=== PATIENT | female | born 1965 | race Caucasian/White ===

== ENCOUNTER 2019-06-22 08:55 | Outpatient (CLI) | payer OTHER ==
[2019-06-22 16:55] LABS: #Basophils 0.1 thou/uL (0.0-0.2); #Eosinphils 0.2 thou/uL (0.0-0.7); #Lymphocytes 1.8 thou/uL (1.20-3.40); #Monocytes 0.5 thou/uL (0.11-0.59); #Neutrophils 4.3 thou/uL (1.40-6.50); %Basophils 1.1 % (0.0-1.0); %Eosinophils 2.5 % (0.0-10.0); %Lymphocytes 26.8 % (21.0-51.0); %Monocytes 6.7 % (0.0-10.0); %Neutrophils 62.8 % (42.0-75.0); Hemoglobin 14.6 g/dL (12.0-16.0); Mean Corpuscular HGB CONC 32.2 g/dL (32.0-36.0); Mean Corpuscular Hemoglobin 29.3 pg (27.0-31.0); Mean Corpuscular Volume 90.8 fL (78.0-98.0); Mean Platelet Volume 7.8 fL (7.4-10.4); Platelet Count 202 thou/uL (130-400); RBC Distribution Width 10.6 % (11.5-14.5); Red Blood Cell (RBC) Count 4.98 mill/uL (4.20-5.40); White Blood Cell (WBC) Count 6.8 thou/uL (4.8-10.8)
--- NOTE | 2019-06-23 11:05 | EKG ---
Test Reason : Blood Pressure : / mmHG Vent. Rate : 073 BPM Atrial Rate : 073 BPM P-R Int : 162 ms QRS Dur : 088 ms QT Int : 380 ms P-R-T Axes : 036 -39 009 degrees QTc Int : 418 ms Normal sinus rhythm Left axis deviation Voltage criteria for left ventricular hypertrophy Cannot rule out Septal infarct , age undetermined Nonspecific ST-T changes Abnormal ECG When compared with ECG of 15-JAN-2015 12:34, Minimal criteria for Septal infarct are now Present Confirmed by DR. Lillian STINSON ([id number]) on 06/23/2019 11:05:17 AM Referred By: PATTI Confirmed By:DR. Lillian STINSON
== END 2019-06-22 08:56 | disposition home or self-care (01) ==
LOC: LABBT 08:55
PROVIDERS: ATTEND Orthopaedic Surgery
DX: Z01.818 Encounter for other preprocedural examination (principal); G56.01 Carpal tunnel syndrome, right upper limb
CPT/HCPCS: 85025; 93005; 93010

== ENCOUNTER 2019-07-05 05:51 | Day surgery (SDC) | payer OTHER ==
[2019-06-22 16:12] VITALS: BMI 41.5
--- NOTE | 2019-07-04 13:18 | HP ---
HISTORY OF PRESENT ILLNESS: The patient is a 54-year-old right-handed female with a greater than one year history of pain, numbness in the median nerve distribution of the right hand without injury. She has had persistent symptoms despite rest, restriction of activities, anti-inflammatory medications, and night splinting. PAST HISTORY: Please see the old chart. The patient is otherwise in good health. She has had previous right total knee replacement in 2015 with good results. She has degenerative arthritis of her left knee, which is currently being managed conservatively. She has a history of glaucoma for which she takes eye drops. She also has been taking etodolac for current symptoms in addition to vitamin D. ALLERGIES: SHE HAS NO KNOWN ALLERGIES. FAMILY HISTORY: Otherwise unremarkable. SOCIAL HISTORY: Otherwise unremarkable. REVIEW OF SYSTEMS: Otherwise unremarkable. PHYSICAL EXAMINATION: GENERAL: Reveals a healthy female. HEENT: Unremarkable. NECK: Supple. CHEST: Clear. HEART: Regular rhythm. ABDOMEN: Soft, nontender. PELVIC, RECTAL, BREAST: Deferred. EXTREMITIES: Pertinent findings of the right wrist. There is no swelling. There is no bony tenderness. She has full range of motion. Motor exam is intact. There is a positive Tinel sign and positive Phalen test. There is subjective numbness in median nerve distribution. There are good distal pulses. Nerve conduction studies performed by Dr. Leyva reveal moderately severe right carpal tunnel syndrome. IMPRESSION: Right carpal tunnel syndrome. PLAN: Endoscopic possible open right carpal tunnel release. The nature of surgery, length of recovery, and potential complications such as infection, loss of motion, incomplete relief, nerve injury, recurrence, need for additional repeat surgery were discussed in detail Job ID: [id number]
[2019-07-05] MEDS ORDERED: Lidocaine 1% (PF) 30 ML VIAL ONE (06:48)
[2019-07-05] MEDS ORDERED: Midazolam HCl 2 mg/2 ml Vial ONE (07:35)
[2019-07-05] MEDS ORDERED: Fentanyl 100 MCG/2 ML VIAL ONE (07:36)
[2019-07-05] MEDS ORDERED: HYDROcodone/Acetaminophen 5/325 mg Tablet ONE (08:52)
[2019-07-05] MEDS ORDERED: Ondansetron PF 4 MG/2 ML Vial ONE (09:53)
[2019-07-05] MEDS ORDERED: PROPOFOL 200 MG/20 ML VIAL ONE (09:53)
--- NOTE | 2019-07-05 14:46 | OP ---
DATE OF PROCEDURE: 07/05/2019 ANESTHESIA: Local plus TIVA. PREOPERATIVE DIAGNOSIS: Right carpal tunnel syndrome. POSTOPERATIVE DIAGNOSIS: Right carpal tunnel syndrome. PROCEDURE PERFORMED: Right endoscopic carpal tunnel release. DESCRIPTION OF PROCEDURE: After satisfactory anesthesia was induced in supine position, the patient was prepped and draped in routine manner. Field block with 1% lidocaine 10 mL was performed. The right arm was elevated, exsanguinated with an Esmarch bandage, and the tourniquet was inflated to 250 mmHg. A 2 cm transverse incision was made in the proximal wrist flexion crease, carried down through the subcutaneous tissues. Bleeding points were controlled with Bovie cautery. Using sharp and blunt dissection, a distally-based flap at the deep forearm fascia was developed and retracted distally. Palmaris longus tendon was retracted radially. Proximal edge of the deep forearm fascia was split under direct visualization with small scissors to make sure there was no proximal impingement on the median nerve. Synovium elevator was introduced beneath the transverse carpal ligament, and the synovium was cleaned from the undersurface. Carpal tunnel dilators were inserted. The Atlas Cloude endoscopic carpal tunnel system was introduced beneath the transverse carpal ligament. The distal edge of the ligament was identified, and that ligament was divided in a distal to proximal direction by pulling the trigger of the assembly, withdrawing the knife, and withdrawing the scope proximally. This was done in several stages to make sure there was complete division of the transverse carpal ligament. After withdrawing the scope, the carpal tunnel dilator could be inserted into the carpal tunnel, and there was markedly improved passage with subcutaneous position of the instrument. The scope was re-introduced into the carpal tunnel. There was wide separation of the 2 leaves of the transverse carpal ligament. The tourniquet was released after 6 minutes. There was no excessive bleeding, and the scope was withdrawn. The wound was thoroughly irrigated and then closed with a running subcuticular 3-0 nylon. Sterile dressing was applied, and the patient was immobilized in a Velcro wrist splint. She was awakened and taken from the operating room in stable condition. There were no apparent intraoperative complications. The estimated blood loss was negligible. The patient will be discharged home in satisfactory condition, instructed on ice, elevation, given written wound care instructions. She was given prescription for tramadol for pain, 30 tablets. She will be rechecked in my office in 10 to 14 days or sooner if there are any problems prior to that time. Job ID: [id number]
== END 2019-07-05 10:01 | disposition home or self-care (01) ==
LOC: SDC 05:51
PROVIDERS: ATTEND Orthopaedic Surgery
PROC: 01N54ZZ Release Median Nerve, Percutaneous Endoscopic Approach (ICD-10-PCS; principal; 2019-07-05)
DX: G56.01 Carpal tunnel syndrome, right upper limb (principal); M17.12 Unilateral primary osteoarthritis, left knee; Z79.1 Long term (current) use of non-steroidal anti-inflammatories (NSAID); Z96.651 Presence of right artificial knee joint
CPT/HCPCS: J0690; J2001; J2250; J2405; J2704; J3010

== ENCOUNTER 2019-10-18 06:41 | Day surgery (SDC) | payer OTHER ==
--- NOTE | 2019-10-17 09:19 | HP ---
HISTORY OF PRESENT ILLNESS: The patient is a 54-year-old female, who underwent endoscopic right carpal tunnel release on July 05, 2019. She has obtained no relief and she has had persistent numbness in the median nerve distribution, which is persistent despite continued use of the splint and anti-inflammatory medications and use of gabapentin. PAST MEDICAL HISTORY: Please see the old chart. The patient has also had previous total knee replacement. She also has arthritis in her other knee for which she takes etodolac. She has used tramadol for pain, and she has history of glaucoma controlled with eye drops. CURRENT MEDICATIONS: Include timolol, Travatan eye drops, etodolac, and tramadol. ALLERGIES: SHE HAS NO KNOWN ALLERGIES. FAMILY HISTORY: Otherwise unremarkable. SOCIAL HISTORY: Otherwise unremarkable. REVIEW OF SYSTEMS: Otherwise unremarkable. PHYSICAL EXAMINATION: GENERAL: Shows healthy female. HEENT: Unremarkable. NECK: Supple. CHEST: Clear. HEART: Rate regular and rhythm. ABDOMEN: Soft, nontender. PELVIC: Deferred. RECTAL: Deferred. BREASTS: Deferred. EXTREMITIES: Pertinent findings of the right wrist, previous incision is well healed. There is no point tenderness. There is full range of motion. Motor exam appears to be intact. There is a positive Tinel sign and equivocal Phalen's test. There is decreased sensation in a median nerve distribution. IMPRESSION: Right carpal tunnel syndrome, recurrent/persistent nerve compression versus nerve injury. PLAN: Open right carpal tunnel release. The nature of the surgery, length of recovery, and potential complications such as infection, loss of motion, incomplete relief, inability to improve the situation, possible nerve injury, and need for additional treatment and repeat surgery have been discussed in detail with the patient and her . Job ID: [id number]
[2019-10-17 12:40] VITALS: BMI 41.5
[2019-10-18 07:48] LABS: #Basophils 0.1 thou/uL (0.0-0.2); #Eosinphils 0.2 thou/uL (0.0-0.7); #Lymphocytes 1.5 thou/uL (1.20-3.40); #Monocytes 0.5 thou/uL (0.11-0.59); #Neutrophils 4.1 thou/uL (1.40-6.50); %Basophils 1.3 % (0.0-1.0); %Eosinophils 3.2 % (0.0-10.0); %Lymphocytes 23.7 % (21.0-51.0); %Monocytes 7.9 % (0.0-10.0); Hemoglobin 14.2 g/dL (12.0-16.0); Mean Corpuscular HGB CONC 33.6 g/dL (32.0-36.0); Mean Corpuscular Hemoglobin 30.7 pg (27.0-31.0); Mean Corpuscular Volume 91.4 fL (78.0-98.0); Mean Platelet Volume 7.1 fL (7.4-10.4); Platelet Count 213 thou/uL (130-400); RBC Distribution Width 11.1 % (11.5-14.5); Red Blood Cell (RBC) Count 4.62 mill/uL (4.20-5.40); White Blood Cell (WBC) Count 6.4 thou/uL (4.8-10.8)
[2019-10-18] MEDS ORDERED: Bupivacaine PF 0.5% 30 ML VIAL ONE (08:18)
[2019-10-18] MEDS ORDERED: PROPOFOL 20 ML ONE (08:32)
[2019-10-18] MEDS ORDERED: Midazolam HCl 2 mg/2 ml Vial ONE (08:32)
[2019-10-18] MEDS ORDERED: Fentanyl 100 MCG/2 ML VIAL ONE ×4 (08:41→10:53)
[2019-10-18] MEDS ORDERED: Bupivacaine HCl 0.5%/Epinephrine 1:200,000/PF 30 ml Vial ONE (10:03)
[2019-10-18] MEDS ORDERED: Morphine 2 MG/ML SYRINGE ONE (10:23)
[2019-10-18] MEDS ORDERED: Ketorolac Tromethamine 30 MG/ML VIAL ONE (10:37)
--- NOTE | 2019-10-18 11:20 | OP ---
DATE OF PROCEDURE: 10/18/2019 ANESTHESIA: General. PREOPERATIVE DIAGNOSIS: Recurrent/persistent carpal tunnel syndrome, right wrist. POSTOPERATIVE DIAGNOSIS: Recurrent/persistent carpal tunnel syndrome, right wrist. PROCEDURE PERFORMED: Open right carpal tunnel release with median nerve exploration. OPERATIVE FINDINGS: There was abundant scar tissue. The median nerve appeared to be herniated anteriorly and was stuck adherent to the skin. There also appeared to be an abnormality in the median nerve in which it was split into two longitudinal segments at the wrist. The most radial of these appeared to end and I could not see a distinct end to this. I could not tell this is a normal variant or could have been partially injured in the initial endoscopic release. The remaining the part of the nerve was freed up including the recurrent branch of the thenar musculature and this appeared to be free and mobile. I freed up the nerve without performing a formal neurolysis and the remaining part of the nerve preferred to be free and mobile, but I could not totally rule out if there was at least a partial injury to the median nerve versus normal variant. If she continues to have problems, she may require referral for microscopic exploration. DESCRIPTION OF PROCEDURE: After satisfactory anesthesia was induced in supine position, the patient was prepped and draped in routine manner. The right arm was elevated and exsanguinated with an Esmarch bandage and the tourniquet inflated to 250 mmHg. Incision was made from the distal palmar crease along the hypothenar eminence to the distal wrist flexion crease and this carried radially several centimeters in the distal forearm. This was carried down through the subcutaneous tissues. Bleeding points were controlled with Bovie cautery. The distal edge of the transverse carpal ligament was identified and then divided in a distal to proximal direction over a grooved director to prevent injury to the underlying median nerve. There appeared to be at least a partial incomplete release of this, although most of the nerve was herniated anteriorly and stuck to the skin. After dividing the remaining portion of the transverse carpal ligament and deep forearm fascia, the nerve was gently explored from proximal to distal and the above findings were noted. The nerve appeared to be as released as much as I could get it and I could not see a distinct end to one segment of the median nerve that would be repairable. The wound was then thoroughly irrigated and the tourniquet deflated after 44 minutes. The hand promptly pinked up. There was no excessive bleeding and the skin was closed with interrupted 3-0 nylon. A sterile bulky dressing was applied and the patient immobilized in a volar plaster splint. She was awakened and taken to recovery room in stable condition. There were no apparent intraoperative complications. The estimated blood loss was negligible. The patient will be discharged home in satisfactory condition. Instructions on ice, elevation, given written wound care instructions. She has Clemons 5 at home for pain. She will be rechecked in my office in 2 weeks or sooner if there are any problems prior to that time. Job ID: [id number] [facility]
--- NOTE | 2019-10-19 08:29 | EKG ---
Test Reason : PREOP Blood Pressure : / mmHG Vent. Rate : 065 BPM Atrial Rate : 065 BPM P-R Int : 168 ms QRS Dur : 088 ms QT Int : 408 ms P-R-T Axes : 037 -25 -05 degrees QTc Int : 424 ms Normal sinus rhythm Voltage criteria for left ventricular hypertrophy Abnormal ECG When compared with ECG of 22-JUN-2019 16:35, Minimal criteria for Septal infarct are no longer Present Confirmed by DR. Jose KEENE ([id number]) on 10/19/2019 8:28:32 AM Referred By: PATTI Confirmed By:DR. Jose KEENE
== END 2019-10-18 12:45 | disposition home or self-care (01) ==
LOC: SDC 06:41
PROVIDERS: ATTEND Orthopaedic Surgery
PROC: 01N50ZZ Release Median Nerve, Open Approach (ICD-10-PCS; principal; 2019-10-18)
DX: G56.01 Carpal tunnel syndrome, right upper limb (principal); Z79.899 Other long term (current) drug therapy
CPT/HCPCS: 36415; 85025; 93005; 93010; J0670; J0690; J1885; J2250; J2270; J2704; J3010; S0020